=== PATIENT | female | born 1985 | race Caucasian/White ===

== ENCOUNTER 2024-10-29 07:59 | Emergency (ER) | payer MEDICAID ==
[~2024-10-29] VITALS: Ht 170.2 cm; Wt 65.5 kg
[2024-10-29 08:03] VITALS: BP 135/91; PULSE 66; RESP 18; TEMP 97.8; O2SAT 100
[2024-10-29] MEDS ORDERED: CYCL-1 PO (11:32)
== END 2024-10-29 11:36 | disposition home or self-care (01) ==
LOC: ER 07:59
DX: G89.29 Other chronic pain (principal); M54.9 Dorsalgia, unspecified; M51.34 Other intervertebral disc degeneration, thoracic region; Z98.890 Other specified postprocedural states
CPT/HCPCS: 72128; 99284

== ENCOUNTER 2025-03-28 10:23 | Outpatient (CLI) | payer MEDICAID ==
[~2025-03-28 10:23] MED LIST: CYCL-1 PO
--- NOTE | 2025-03-28 12:36 | RADIOLOGY REPORT ---
EXAM: DI LUMBAR SPINE LIMITED HISTORY: CHRONIC BIALT LOW BACK PAIN W/ BILAT SCIATICA COMPARISON: None TECHNIQUE: AP and lateral views of the lumbar spine and spot lateral of the lumbosacral junction were performed. FINDINGS: No fracture or listhesis of the lumbar spine. There is mild Lumbar degenerative disc disease. There i s minimal thoracolumbar dextroscoliosis. IMPRESSION: Mild degenerative changes of the lumbar spine without evidence of fracture. If the patient complains of lower extremity radicular symptoms, consider follow-up noncontrast MRI of the lumbar spine for further evaluation of the exiting nerve roots.
--- NOTE | 2025-03-28 14:36 | RADIOLOGY REPORT ---
PROCEDURE: MRI thoracic spine without contrast. INDICATION: PAIN THORACIC SPINE COMPARISON: CT CT THORACIC SPINE on DOS: 10/29/24 TECHNIQUE: MRI thoracic spine without intravenous contrast utilizing multiplanar, multisequence tech nique. FINDINGS: The marrow signal is homogenous. The vertebral body heights are maintained. Alignment of the thoracic spine is preserved. Broad-based posterior disc bulge at T7-T8. No significant spinal or neural fora adonis stenosis. The thoracic spinal cord is normal in caliber and signal characteristics. Other: None. Impression: 1. Broad-based posterior disc bulge at T7-TNo significant spinal or neural foraminal stenosis in the thoracic spine.
== END 2025-03-28 23:59 | disposition home or self-care (01) ==
LOC: MRI02 10:23
PROVIDERS: ATTEND Family Medicine
DX: M51.14 Intervertebral disc disorders with radiculopathy, thoracic region (principal); M47.26 Other spondylosis with radiculopathy, lumbar region; M54.6 Pain in thoracic spine; M41.86 Other forms of scoliosis, lumbar region
CPT/HCPCS: 72100; 72146